=== PATIENT | male | born 1985 | race Caucasian/White ===

== ENCOUNTER 2017-03-02 17:53 | Emergency (ER) | payer BC ==
[~2017-03-02] VITALS: Ht 182.9 cm; Wt 82.0 kg
[~2017-03-02 17:53] MED LIST: HYDR-3534 PO
[2017-03-02 17:58] VITALS: BP 166/91; PULSE 91; RESP 14; TEMP 98.1; O2SAT 99
--- NOTE | 2017-03-02 19:40 | PD ---
HPI Chief Complaint: Head Injury Time Seen by Provider: 19:25 Travel History International Travel<30 days: No Contact w/Intl Traveler<30days: No Traveled to known affect area: No History of Present Illness HPI 31-year-old white male presents to emergency department requesting evaluation of headache and blurred vision in his left eye after being a trauma alert on . The patient states that he has not followed up with anyone after his discharge. He has had some intermittent headache, nausea but no vomiting, and decreased vision out of the left eye. He denies any photophobia. No numbness, tingling or weakness. No floaters. No foreign body sensation. No itching or drainage. He does note that he had a cold a few weeks earlier that has resolved. PFSH Past Medical History Medical History: Denies Significant Hx Tetanus Vaccination: < 5 Years Past Surgical History Surgical History: No Previous Surgery Social History Tobacco Use: No Substance Use: No Allergies-Medications (Allergen,Severity, Reaction): Coded Allergies: No Known Allergies (Unverified Adverse Reaction, Unknown, 03/02/17) Reported Meds & Prescriptions Reported Meds & Active Scripts Active Lortab (Hydrocodone-Acetaminophen) 7.5-325 Mg Tab 1 Tab PO Q6H PRN Review of Systems General / Constitutional: No: Fever Eyes: Positive: Blurred Vision, Visual changes, No: Diploplia, Photophobia, Drainage, Redness, Foreign Body Sensation, Pain, Tearing, Blindness HENT: Positive: Headaches, No: Neck Stiffness, Neck Pain Cardiovascular: No: Chest Pain or Discomfort Respiratory: No: Shortness of Breath Gastrointestinal: Positive: Nausea, No: Vomiting, Abdominal Pain Genitourinary: No: Dysuria Musculoskeletal: No: Pain Skin: No Rash Neurologic: No: Weakness Psychiatric: No: Depression Endocrine: No: Polydipsia Hematologic/Lymphatic: No: Easy Bruising Physical Exam Narrative GENERAL: Well-developed, well-nourished in no acute distress. Nontoxic appearing. HEAD: Normocephalic, atraumatic. EYES: Pupils equal round and reactive. Extraocular motions intact. No scleral icterus. No injection or drainage. ENT: TMs clear without erythema. The external auditory canals clear. Nose: clear . Posterior pharynx is pink and moist. No tonsillar edema or exudate. Uvula midline. Airway patent. Funduscopic exam on the right is unremarkable. Funduscopic exam on the left reveals possible small amount of blood behind the lens. The disc is clear. Patient has subconjunctival hemorrhage to the left I. Visual acuity is 20/40 in the left eye and 20/20 in the right eye NECK: Trachea midline.Supple, nontender, moves head freely. No central bony tenderness or spasm. CARDIOVASCULAR: Regular rate and rhythm without murmurs, gallops, or rubs. RESPIRATORY: Clear to auscultation. Breath sounds equal bilaterally. No wheezes , rales, or rhonchi. GASTROINTESTINAL: Abdomen soft, non-tender, nondistended. No hepato-splenomegaly , or palpable masses. No guarding. EXTREMITIES: No clubbing, cyanosis, or edema. No joint tenderness, effusion, or edema noted. BACK: Nontender without deformity or crepitance. No flank tenderness. Data Data Last Documented VS Vital Signs Date Time Temp Pulse Resp B/P (MAP) Pulse Ox O2 Delivery O2 Flow Rate FiO2 03/02/17 17:58 98.1 91 14 166/91 (116) 99 MDM Medical Decision Making Medical Screen Exam Complete: Yes Emergency Medical Condition: Yes Medical Record Reviewed: Yes Differential Diagnosis Differential diagnosis: Head injury, postconcussive syndrome, ocular injury, Narrative Course I explained to the patient that he'll need to follow-up with an switchboard operator supervisor. There is some question that he may have a small amount of blood behind the lens. This is be followed up. I reviewed his CAT scans which only show sinus disease. He states that his cold symptoms of actually gotten better. His headaches may be related to his eye. He is advised to avoid aspirin products and follow-up Blurred vision, postconcussive syndrome Diagnosis Primary Impression: Blurred vision, left eye Additional Impression: Postconcussive syndrome Referrals: Vesta Zimmerman MD 3 days Patient Instructions: General Instructions Additional Instructions: Rest. Follow-up with an switchboard operator supervisor in the next 1-3 days. Avoid aspirin products. Tylenol only for pain. Return to the ER for worsening medical problems. Disposition: 01 DISCHARGE HOME Condition: Stable Rubio Vidales Mar 02, 2017 19:40
== END 2017-03-02 19:50 | disposition home or self-care (01) ==
LOC: NEPK 17:53
DX: H53.8 Other visual disturbances (principal); F07.81 Postconcussional syndrome; R11.0 Nausea
CPT/HCPCS: 99281